=== PATIENT | male | born 1990 | race Two or more races ===

== ENCOUNTER 2018-08-05 12:22 | Emergency (ER) | payer BC ==
[~2018-08-05] VITALS: Ht 160 cm; Wt 62.6 kg
[2018-08-05 12:40] VITALS: BP 120/76
--- NOTE | 2018-08-05 12:40 | NUR ---
ED Nurse Note: pt walked in due to pain on the right upper forehead and dizzyness. pt stated that he slip and fell last night at 3 am, claims that he loose consciousness. pt is complaining of 8/10 headache. pt stated he feel hungry but no appetite to eat. pt able to ambulata, aox4. will continue to monitor.
[2018-08-05] MEDS ORDERED: Tetanus/Diptheria/Pertussis IM ONE (13:00)
[2018-08-05] MEDS ORDERED: Bacitracin Oint UD TOPIC ONE (13:00)
[2018-08-05] MEDS ORDERED: Acetaminophen 500mg (ES) tab PO ONE (13:00)
--- NOTE | 2018-08-05 13:00 | NUR ---
ED Nurse Note: pt medicated and tolerated well
--- NOTE | 2018-08-05 13:01 | NUR ---
ED Nurse Note: pt went to ct with tech
--- NOTE | 2018-08-05 13:10 | NUR ---
ED Nurse Note: pt went back from ct with tech
[2018-08-05 13:45] VITALS: BP 120/76
--- NOTE | 2018-08-05 13:45 | NUR ---
ER DISCHARGE NOTE: Patient is cleared to be discharged per ERMD, pt is aox4, on room air, with stable vital signs. pt was given dc and prescription instructions, pt was able to verbalize understanding, pt id band removed without complications. pt is able to ambulate with steady gait. pt took all belongings.
[2018-08-05] MEDS ORDERED: IBUPROFEN600 MG ORAL (13:47)
[2018-08-05] MEDS ORDERED: ONDANSETRON ODT4 MG BC (13:47)
--- NOTE | 2018-08-05 14:34 | Emergency Room Report ---
History of Present Illness General Chief Complaint: Head Injury Source: Patient Present Illness HPI 28-year-old male presents ED for evaluation. States that last night he had a mechanical trip and fall in his home in the dark and fell and hit his head. Denies LOC. Notes abrasion to his forehead. Tetanus unknown. States he has been having persistent headaches and dizziness since the fall. Denies nausea or vomiting. Pain is throbbing, 8 out of 10, nonradiating. Denies any other injuries. No other aggravating relieving factors. Denies any other associated symptoms Allergies: Coded Allergies: No Known Allergies (Unverified , 08/05/18) Patient History Past Medical History: none Past Surgical History: none Pertinent Family History: none Social History: Denies: smoking, alcohol use, drug use Immunizations: UTD Reviewed Nursing Documentation: PMH: Agreed; PSxH: Agreed Nursing Documentation-PMH Past Medical History: No Stated History Review of Systems All Other Systems: negative except mentioned in HPI Physical Exam Vital Signs Date Time Temp Pulse Resp B/P (MAP) Pulse Ox O2 Delivery O2 Flow Rate FiO2 08/05/18 12:29 98.6 69 20 120/76 (91) 97 Room Air Sp02 EP Interpretation: reviewed, normal General Appearance: no apparent distress, alert, GCS 15, non-toxic Head: normocephalic, other - abrasion to forehead Eyes: bilateral eye normal inspection, bilateral eye PERRL ENT: hearing grossly normal, normal pharynx, no angioedema, normal voice Neck: full range of motion, no bony tend, supple/symm/no masses Respiratory: normal inspection Cardiovascular #1: normal inspection Gastrointestinal: normal inspection Rectal: deferred Genitourinary: no CVA tenderness Musculoskeletal: back normal, gait/station normal, normal range of motion, non- tender Neurologic: alert, oriented x3, responsive, customer support advisor III-XII nml as tested, motor strength/tone normal, sensory intact, speech normal Psychiatric: normal inspection Skin: normal inspection Lymphatic: normal inspection Medical Decision Making Diagnostic Impression: Primary Impression: Acute head injury Qualified Codes: S09.90XA - Unspecified injury of head, initial encounter ER Course Hospital Course 28-year-old M presents ED complaining of headache with dizziness s/p fall with head injury. abrasion to head Differential diagnoses include: skull fx, intracranial injury, concussion Clinical course Patient placed on stretcher. After initial history and physical I ordered CT head and pain medications, tdap, bacitracin CT head shows no acute process. discussed findings with patient. Reassurance given. safe fot discharge with close outpatient follow-up. Diagnosis - head injury Stable and discharged to home with Rx Motirn, Zofran. Followup with PMD. Return to ED if symptoms recur or worsen CT/MRI/US Diagnostic Results CT/MRI/US Diagnostic Results : Imaging Test Ordered: CT Head Impression no acute process Last Vital Signs Date Time Temp Pulse Resp B/P (MAP) Pulse Ox O2 Delivery O2 Flow Rate FiO2 08/05/18 13:45 98.6 82 20 120/76 97 Room Air Status: improved Disposition: HOME, SELF-CARE Condition: Stable Scripts Ondansetron Odt* (ZOFRAN ODT*) 4 Mg Tab.rapdis 4 MG BC EVERY 6 HOURS PRN for Nausea & Vomiting, #10 TAB 0 Refills Prov: Antonio Mcbride MD 08/05/18 Ibuprofen* (MOTRIN*) 600 Mg Tablet 600 MG ORAL Q8H PRN for For Pain, #30 TAB 0 Refills Prov: Antonio Mcbride MD 08/05/18 Referrals: NOT CHOSEN IPA/,REFERRING (PCP) Patient Instructions: Post-Concussion Syndrome, [id number] Antonio Mcbride MD Aug 05, 2018 14:34
--- NOTE | 2018-08-06 10:42 | Diagnostic Imaging Report ---
Indication: Headache Technique: Contiguous 5 mm thick transaxial imaging of the head obtained in a Siemens Sensation [address] scanner. Soft tissue and bone windows generated. Automatic Exposure Control was utilized. Total Dose length Product (DLP): 1354.[address] Dose Index Volume (CTDIvol): 70.38 mGy Comparison: none Findings: The size and configuration of the cortical sulci, basal cisterns, and ventricles are within normal limits for age. There is no mass effect, midline shift, or edema identified. There is no evidence of acute hemorrhage or abnormal intra-axial or extra-axial fluid collections. The bones and soft tissues are unremarkable. Impression: No mass effect, edema or acute bleed. [facility] has communicated the preliminary results to the Emergency Department. Their findings are largely concordant with this report. The CT scanner at [facility] is accredited by the [employer] and the scans are performed using dose optimization techniques as appropriate to a performed exam including Automatic Exposure control.
== END 2018-08-05 13:45 | disposition home or self-care (01) ==
LOC: EMR 13:30
DX: S00.81XA Abrasion of other part of head, initial encounter (principal); S09.90XA Unspecified injury of head, initial encounter; W01.0XXA Fall on same level from slipping, tripping and stumbling without subsequent striking against object, initial encounter; Y92.9 Unspecified place or not applicable; Z23 Encounter for immunization
CPT/HCPCS: 70450; 90471; 90715; 99284